=== PATIENT | female | born 1955 | race Caucasian/White ===

== ENCOUNTER 2018-05-05 10:10 | Emergency (ER) | payer BC, OTHER ==
--- NOTE | 2018-05-05 11:11 | EDM.PDOC ---
ED HPI GENERAL MEDICAL PROBLEM - General Chief Complaint: General Stated Complaint: POPPED A RIB Time Seen by Provider: 05/05/18 10:50 Source of Information: Reports: Patient History Limitations: Reports: No Limitations - History of Present Illness INITIAL COMMENTS - FREE TEXT/NARRATIVE: 62-year-old female has been struggling with recurring rib fractures over the past 4 months, was healed and was doing well but was very active over the past 3 days repeatingly lifting 16 pounds and then yesterday coughed and felt a pop in the left posterior rib cage. Today she is very uncomfortable, having pleuritic pain, and has been told by her primary provider if this happens she needs to repeat a CT scan to see if she has additional fractures. She has no shortness of breath but she does have pain with breathing, no fevers or chills, denies nausea or vomiting. Onset: Sudden Duration: Day(s): (Yesterday) Location: Reports: Chest (Posterior left chest) Left Chest Pain Score (Numeric/FACES): 3 - Related Data Allergies Allergy/AdvReac Type Severity Reaction Status Date / Time No Known Allergies Allergy Verified 05/05/18 10:46 Home Meds: Home Meds Alendronate Sodium [Fosamax] 70 mg PO ASDIRECTED 05/05/18 [History] Aspirin [Adult Aspirin] 81 mg PO DAILY 05/05/18 [History] DULoxetine [Cymbalta] 30 mg PO DAILY 05/05/18 [History] Hydrochlorothiazide 25 mg PO DAILY 05/05/18 [History] Latanoprost [Xalatan] 2.5 ml TOP DAILY 05/05/18 [History] Metoprolol Tartrate 25 mg PO DAILY 05/05/18 [History] Naproxen 500 mg PO BID 05/05/18 [History] Simvastatin [Zocor] 40 mg PO BEDTIME 05/05/18 [History] Past Medical History HEENT History: Reports: Glaucoma Cardiovascular History: Reports: High Cholesterol, Hypertension Musculoskeletal History: Reports: Arthritis, Fracture, Osteoporosis - Past Surgical History HEENT Surgical History: Reports: Other (See Below) Other HEENT Surgeries/Procedures: nose polyp removed. vocal cord surgery Social & Family History - Tobacco Use Smoking Status *Q: Current Every Day Smoker Years of Tobacco use: 1 Packs/Tins Daily: 40 - Caffeine Use Caffeine Use: Reports: Coffee - Recreational Drug Use Recreational Drug Use: No ED ROS GENERAL - Review of Systems Review Of Systems: See Below Constitutional: Denies: Fever, Chills HEENT: Reports: No Symptoms Respiratory: Reports: Pleuritic Chest Pain. Denies: Shortness of Breath Cardiovascular: Denies: Palpitations GI/Abdominal: Denies: Abdominal Pain, Nausea, Vomiting Skin: Denies: Bruising ED EXAM, GENERAL - Physical Exam Exam: See Below Exam Limited By: No Limitations General Appearance: Alert, No Apparent Distress (Patient looks uncomfortable but is not distressed) Respiratory/Chest: No Respiratory Distress, Lungs Clear, Other (Exquisitely tender to palpation across the lateral and posterior left chest, no crepitus or bruising or asymmetry) Cardiovascular: Regular Rate, Rhythm Neurological: Alert, Oriented Psychiatric: Anxious Skin Exam: Warm, Dry Course - Vital Signs Last Recorded V/S: Last Vital Signs Temp 97.0 F 05/05/18 10:40 Pulse 80 05/05/18 10:40 Resp 18 05/05/18 10:40 BP 163/80 H 05/05/18 10:40 Pulse Ox 94 L 05/05/18 10:40 - Orders/Labs/Meds Orders: Active Orders 24 hr Category Date Time Status EKG Documentation Completion [RC] ASDIRECTED Care 05/05/18 12:38 Inactive Chest wo Cont [CT] Stat Exams 05/05/18 11:06 Taken EKG 12 Lead [EK] Stat Ther 05/05/18 12:36 Stop Req Meds: Medications Discontinued Medications Generic Name Dose Route Start Last Admin Trade Name Marcia PRN Reason Stop Dose Admin Ketorolac Tromethamine 60 mg 05/05/18 11:36 05/05/18 12:06 Toradol IM 05/05/18 11:37 60 mg ONETIME ONE Administration - Re-Assessments/Exams Free Text/Narrative Re-Assessment/Exam: 05/05/18 11:[address] of the chest without contrast was obtained to assess the ribs. 05/05/18 12:48 CT the chest did confirm old rib fractures 7-9, however there is a new subtle acute rib fracture in the 10th rib. This does correlate with her new pain. A copy of the CT scan was made to give the patient for follow-up to compared to her previous CTs at [facility]. She was given Robitussin-AC for cough suppression along with 10 Vicodin to use as needed along with anti- inflammatories. She is going to recheck with her primary provider on Monday or Monday. Departure - Departure Time of Disposition: 12:54 Disposition: Home, Self-Care 01 Condition: Good Clinical Impression: Closed rib fracture Qualifiers: Encounter type: initial encounter Rib fracture type: single rib Laterality: left Qualified Code(s): S22.32XA - Fracture of one rib, left side, initial encounter for closed fracture - Discharge Information Instructions: Rib Fracture, [id number] Referrals: Daniela Torres [employer]ACILITY EXAMINER [Primary Care Provider] - Forms: ED Department Discharge Care Plan Goals: Increase activity as tolerated, take pain medication as discussed. Recheck next week with your primary provider to discuss further evaluation and treatment. - My Orders Last 24 Hours: My Active Orders 05/05/18 11:06 Chest wo Cont [CT] Stat 05/05/18 12:36 EKG 12 Lead [EK] Stat 05/05/18 12:38 EKG Documentation Completion [RC] ASDIRECTED - Assessment/Plan Last 24 Hours: My Active Orders 05/05/18 11:06 Chest wo Cont [CT] Stat 05/05/18 12:36 EKG 12 Lead [EK] Stat 05/05/18 12:38 EKG Documentation Completion [RC] ASDIRECTED
[2018-05-05] MEDS ORDERED: Ketorolac 60 MG/2 ML SDV IM ONE (11:36)
== END 2018-05-05 12:59 | disposition home or self-care (01) ==
LOC: JP.ED 10:10
DX: S22.32XA Fracture of one rib, left side, initial encounter for closed fracture (principal); E78.00 Pure hypercholesterolemia, unspecified; I10 Essential (primary) hypertension; F17.210 Nicotine dependence, cigarettes, uncomplicated; Z79.82 Long term (current) use of aspirin; Z79.899 Other long term (current) drug therapy; X50.0XXA Overexertion from strenuous movement or load, initial encounter
CPT/HCPCS: 71250; 96372; 99284; J1885

== ENCOUNTER 2021-04-12 18:22 | Emergency (ER) | payer MEDICAID, OTHER ==
[2021-04-12] MEDS ORDERED: Nitroglycerin 0.4 MG Tab.SL SL PRN (18:58)
[2021-04-12] MEDS ORDERED: Aspirin 81 MG Tab.Chew PO ONE (18:58)
[2021-04-12] MEDS ORDERED: Morphine 4 MG/ML Syringe IVPUSH PRN (18:58)
--- NOTE | 2021-04-12 19:01 | EDM.PDOC ---
ED HPI GENERAL MEDICAL PROBLEM - General Chief Complaint: Chest Pain Stated Complaint: CHEST DULL ACHE,SHORTNESS OF BREATH Time Seen by Provider: 04/12/21 18:47 Source of Information: Reports: Patient, RN Notes Reviewed History Limitations: Reports: No Limitations - History of Present Illness INITIAL COMMENTS - FREE TEXT/NARRATIVE: 65-year-old female presents emergency department with a complaint of chest pressure, she states has been there most of the day no change with exertion she does have a known history of coronary disease but never had any stenting. She states she does feel more short of breath than usual no nausea vomiting or diaphoresis. Is set up for stress test Left Chest Pain Score (Numeric/FACES): 1 - Related Data Allergies Allergy/AdvReac Type Severity Reaction Status Date / Time No Known Allergies Allergy Verified 04/12/21 18:40 Home Meds: Home Meds Aspirin [Adult Aspirin] 81 mg PO DAILY 05/05/18 [History] DULoxetine [Cymbalta] 30 mg PO DAILY 05/05/18 [History] Latanoprost [Xalatan] 2.5 ml TOP DAILY 05/05/18 [History] Metoprolol Tartrate 25 mg PO DAILY 05/05/18 [History] Naproxen 500 mg PO BEDTIME 05/05/18 [History] hydroCHLOROthiazide [Hydrochlorothiazide] 25 mg PO DAILY 05/05/18 [History] atorvaSTATin [Lipitor] 40 mg PO BEDTIME 04/12/21 [History] Past Medical History HEENT History: Reports: Glaucoma Cardiovascular History: Reports: High Cholesterol, Hypertension 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 vocal cord surgery Social & Family History - Tobacco Use Tobacco Use Status *Q: Former Tobacco User Years of Tobacco use: 24 Packs/Tins Daily: 2 Used Tobacco, but Quit: No Second Hand Smoke Exposure: No - Caffeine Use Caffeine Use: Reports: Coffee - Alcohol Use Days Per Week of Alcohol Use: 7 Number of Drinks Per Day: 3 Total Drinks Per Week: 21 - Recreational Drug Use Recreational Drug Use: No ED ROS GENERAL - Review of Systems Review Of Systems: See Below Constitutional: Reports: No Symptoms HEENT: Reports: No Symptoms Respiratory: Reports: Shortness of Breath Cardiovascular: Reports: Chest Pain GI/Abdominal: Reports: No Symptoms ED EXAM, GENERAL - Physical Exam Exam: See Below Exam Limited By: No Limitations General Appearance: Alert, WD/WN, No Apparent Distress Respiratory/Chest: No Respiratory Distress, Lungs Clear, Normal Breath Sounds, No Accessory Muscle Use, Chest Non-Tender Cardiovascular: Regular Rate, Rhythm, No Murmur GI/Abdominal: Soft, Non-Tender #1 Interpretation EKG Date: 04/12/21 Time: 19:10 Rhythm: NSR [place]: Normal P-Wave: Present QRS: Normal ST-T: Normal QT: Normal Comparison: NA - No Prior EKG Course - Vital Signs Last Recorded V/S: Last Vital Signs Temp 98.3 F 04/12/21 18:53 Pulse 82 04/12/21 19:35 Resp 22 H 04/12/21 19:35 BP 136/72 04/12/21 19:35 Pulse Ox 91 L 04/12/21 19:35 - Orders/Labs/Meds Orders: Active Orders 24 hr Category Date Time Status Cardiac Monitoring [RC] .As Directed Care 04/12/21 18:58 Active EKG Documentation Completion [RC] ASDIRECTED Care 04/12/21 18:59 Active Chest 1V Frontal [CR] Stat Exams 04/12/21 18:59 Taken Morphine Med 04/12/21 18:58 Active 4 mg IVPUSH Q10M PRN Nitroglycerin [Nitrostat] Med 04/12/21 18:58 Active 0.4 mg SL Q5M PRN EKG 12 Lead [EK] Stat Ther 04/12/21 18:59 Ordered Medication Orders Morphine Sulfate (Morphine 4 Mg/Ml Syringe) 4 mg IVPUSH Q10M PRN PRN Reason: Chest Pain Stop: 04/13/21 18:58 Nitroglycerin (Nitroglycerin 0.4 Mg Tab.Sl) 0.4 mg SL Q5M PRN PRN Reason: Chest Pain Stop: 04/13/21 18:58 Labs: Laboratory Tests 04/12/21 04/12/21 04/12/21 Range/Units 19:17 19:17 19:17 WBC 8.5 (4.5-11.0) K/uL RBC 4.55 (3.30-5.50) M/uL Hgb 14.8 (12.0-15.0) g/dL Hct 44.9 (36.0-48.0) % MCV 99 H (80-98) fL MCH 33 H (27-31) pg MCHC 33 (32-36) % Plt Count 149 L (150-400) K/uL Neut % (Auto) 57.8 (36-66) % Lymph % (Auto) 28.5 (24-44) % [place] % (Auto) 8.7 H (2-6) % Eos % (Auto) 4.2 H (2-4) % Baso % (Auto) 0.8 (0-1) % D-Dimer, Quantitative 259.16 (0.0-500.0) ng/mL Sodium 142 (140-148) mmol/L Potassium 3.7 (3.6-5.2) mmol/L Chloride 102 (100-108) mmol/L Carbon Dioxide 30 (21-32) mmol/L Anion Gap 10.2 (5.0-14.0) mmol/L BUN 14 (7-18) mg/dL Creatinine 0.7 (0.6-1.0) mg/dL Est Cr Clr Drug Dosing 73.06 mL/min Estimated GFR (MDRD) > 60 (>60) Glucose 92 (74-106) mg/dL Calcium 8.9 (8.5-10.1) mg/dL Total Bilirubin 0.5 (0.2-1.0) mg/dL AST 25 (15-37) U/L ALT 40 (12-78) U/L Alkaline Phosphatase 86 (46-116) U/L Troponin I < 0.017 (0.000-0.056) ng/mL Total Protein 7.1 (6.4-8.2) g/dL Albumin 3.8 (3.4-5.0) g/dL Globulin 3.3 (2.3-3.5) g/dL Albumin/Globulin Ratio 1.2 (1.2-2.2) Meds: Medications Generic Name Dose Route Start Last Admin Trade Name Freq PRN Reason Stop Dose Admin Morphine Sulfate 4 mg 04/12/21 18:58 Morphine 4 Mg/Ml Syringe IVPUSH 04/13/21 18:58 Q10M PRN Chest Pain Nitroglycerin 0.4 mg 04/12/21 18:58 Nitroglycerin 0.4 Mg Tab.Sl SL 04/13/21 18:58 Q5M PRN Chest Pain Discontinued Medications Generic Name Dose Route Start Last Admin Trade Name Macria PRN Reason Stop Dose Admin Aspirin 324 mg 04/12/21 18:58 04/12/21 19:33 Aspirin 81 Mg Tab.Chew PO 04/12/21 18:59 324 mg ONETIME ONE Administration Departure - Departure Time of Disposition: 19:57 Disposition: Home, Self-Care 01 Condition: Fair Clinical Impression: Atypical chest pain Instructions: Nonspecific Chest Pain, Adult Referrals: Daniela Torres NP [Primary Care Provider] - Forms: ED Department Discharge Additional Instructions: Please keep your follow-up appointment for stress test, follow-up with your primary care next 3 to 5 days for further evaluation call return to the emergency department worsening of symptoms Sepsis Event Note (ED) - Evaluation Sepsis Screening Result: No Definite Risk - Focused Exam Vital Signs: Vital Signs Temp Pulse Resp BP Pulse Ox 04/12/21 19:35 82 22 H 136/72 91 L 04/12/21 18:53 98.3 F 74 14 155/84 H 96 04/12/21 18:41 98.3 F 74 14 155/84 H 96 - My Orders Last 24 Hours: My Active Orders 04/12/21 18:58 Cardiac Monitoring [RC] .As Directed Morphine 4 mg IVPUSH Q10M PRN Nitroglycerin [Nitrostat] 0.4 mg SL Q5M PRN 04/12/21 18:59 EKG Documentation Completion [RC] ASDIRECTED Chest 1V Frontal [CR] Stat EKG 12 Lead [EK] Stat - Assessment/Plan Last 24 Hours: My Active Orders 04/12/21 18:58 Cardiac Monitoring [RC] .As Directed Morphine 4 mg IVPUSH Q10M PRN Nitroglycerin [Nitrostat] 0.4 mg SL Q5M PRN 04/12/21 18:59 EKG Documentation Completion [RC] ASDIRECTED Chest 1V Frontal [CR] Stat EKG 12 Lead [EK] Stat Plan: Assessment Acuity = acute Site and laterality = atypical chest pain Etiology = unknown Manifestations = none Location of injury = Home Lab values = CBC CMP unremarkable troponin is negative D-dimer is negative EKG demonstrates sinus rhythm no ST elevations or depressions, chest x-ray I did review films myself I cannot appreciate any acute process, the official read from radiology is pending Plan She is scheduled for a stress test we will have her continue with that follow-up primary care 3 to 5 days if no improvement This note was dictated using [employer] voice recognition software please call with any questions on syntax or grammar.
--- NOTE | 2021-04-13 13:00 | CR ---
CHEST: Portable 04/12/2021 at 7:34 PM CLINICAL HISTORY:Chest pain COMPARISON:CT 2018 FINDINGS: The heart size, pulmonary vascularity and hilar structures are normal. No infiltrate effusion or pneumothorax is seen. There is a fracture of the right seventh rib which appears old IMPRESSION: No acute cardiopulmonary process.
== END 2021-04-12 20:32 | disposition home or self-care (01) ==
LOC: JP.ED 18:22
DX: R07.89 Other chest pain (principal); E78.00 Pure hypercholesterolemia, unspecified; I10 Essential (primary) hypertension; E66.9 Obesity, unspecified; Z68.30 Body mass index [BMI] 30.0-30.9, adult; Z79.82 Long term (current) use of aspirin; Z79.899 Other long term (current) drug therapy; Z87.891 Personal history of nicotine dependence
CPT/HCPCS: 36415; 71045; 80053; 84484; 85025; 85379; 93005; 99285; A9270

== ENCOUNTER 2022-03-17 21:35 | Emergency (ER) | payer MEDICARE, MEDICAID | END 2022-03-17 22:35 | disposition home or self-care (01) | LOC: JP.ED 21:35 | DX: K94.23 Gastrostomy malfunction (principal); E78.00 Pure hypercholesterolemia, unspecified; I10 Essential (primary) hypertension; E66.9 Obesity, unspecified; Z68.34 Body mass index [BMI] 34.0-34.9, adult; Z79.82 Long term (current) use of aspirin; Z79.899 Other long term (current) drug therapy | CPT/HCPCS: 99282; 99283 ==

== ENCOUNTER 2023-07-15 02:06 | Emergency (ER) | payer MEDICARE, MEDICAID ==
[2023-07-15] MEDS ORDERED: Ketorolac 30 MG/ML SDV IM ONE (02:37)
[2023-07-15] MEDS ORDERED: Acetaminophen/HYDROcodone 325-5 MG Tab PO ONE (03:00)
== END 2023-07-15 03:32 | disposition home or self-care (01) ==
LOC: JP.ED 02:06
DX: J20.9 Acute bronchitis, unspecified (principal); E78.00 Pure hypercholesterolemia, unspecified; I10 Essential (primary) hypertension; E66.9 Obesity, unspecified; F17.210 Nicotine dependence, cigarettes, uncomplicated; Z68.30 Body mass index [BMI] 30.0-30.9, adult; Z79.82 Long term (current) use of aspirin; Z79.899 Other long term (current) drug therapy
CPT/HCPCS: 71045; 96372; 99283; J1885

== ENCOUNTER 2023-08-18 11:18 | Emergency (ER) | payer MEDICARE, MEDICAID | END 2023-08-18 13:07 | disposition home or self-care (01) | LOC: JP.ED 11:18 | DX: S82.831A Other fracture of upper and lower end of right fibula, initial encounter for closed fracture (principal); F17.210 Nicotine dependence, cigarettes, uncomplicated; E78.00 Pure hypercholesterolemia, unspecified; I10 Essential (primary) hypertension; M19.90 Unspecified osteoarthritis, unspecified site; E66.9 Obesity, unspecified; Z79.82 Long term (current) use of aspirin; Z79.899 Other long term (current) drug therapy; W19.XXXA Unspecified fall, initial encounter | CPT/HCPCS: 72220; 72220-26; 73610-26-RT; 73610-RT; 99283 ==

== ENCOUNTER 2023-09-11 08:53 | Day surgery (SDC) | payer MEDICARE, MEDICAID ==
[~2023-09-11 08:53] MED LIST: Bupivacaine 0.5% 50 ML MDV ONE; Nozin Nasal Sanitizer NASBOTH ONE; Sodium Chloride 0.9% 1,000 ML IV SCH; ceFAZolin 2 GM in Premix Bag 1 BAG IV ONE
[2023-09-11 09:31] LABS: HEMOGLOBIN 14.3 g/dL (11.2-15.5); MEAN CORPUSCULAR HEMOGLOBIN 32.3 pg (31.6-35.5); MEAN CORPUSCULAR VOLUME 94.8 fL (81.4-99.0); RED BLOOD CELL COUNT 4.43 M/uL (3.77-5.24); WHITE BLOOD CELL COUNT,WBC 7.9 K/uL (3.2-11.0)
[2023-09-11] MEDS ORDERED: Lactated Ringers 1,000 ML IV SCH (09:45)
[2023-09-11 09:52] LABS: A/G RATIO 1.2 (1.2-2.2); ALANINE AMINOTRANSFERASE,ALT 29 U/L (12-78); ALBUMIN 3.8 g/dL (3.4-5.0); ALKALINE PHOSPHATASE 102 U/L (46-116); ANION GAP 9.6 mmol/L (5.0-14.0); ASPARTATE AMNIOTRANSFERASE,AST 24 U/L (15-37); BILIRUBIN TOTAL 0.7 mg/dL (0.2-1.0); BLOOD UREA NITROGEN,BUN 21 mg/dL (7-18); CALCIUM 9.1 mg/dL (8.5-10.1); CARBON DIOXIDE,CO2 29 mmol/L (21-32); CHLORIDE,CL 104 mmol/L (100-108); CREATININE 0.8 mg/dL (0.6-1.0); EST CRCL DRUG DOSING (CG) 62.24 mL/min; ESTIMATED GFR 81 mL/min (>60); GLUCOSE RANDOM 100 mg/dL (74-106); POTASSIUM,K 4.2 mmol/L (3.6-5.2); PROTEIN TOTAL,TP 7.1 g/dL (6.4-8.2); SODIUM,NA 143 mmol/L (140-148)
[2023-09-11] MEDS ORDERED: Succinylcholine 200 MG/10 ML MDV ONE (10:48)
[2023-09-11] MEDS ORDERED: Glycopyrrolate 0.2 MG/ML 5 ML MDV ONE (10:48)
[2023-09-11] MEDS ORDERED: Neostigmine Methylsulfate 1 MG/ML 5 ML Syringe ONE (10:48)
[2023-09-11] MEDS ORDERED: Ondansetron 4 MG/2 ML SDV ONE (10:48)
[2023-09-11] MEDS ORDERED: fentaNYL 250 MCG/5 ML SDV ONE ×2 (10:48→11:59)
[2023-09-11] MEDS ORDERED: Rocuronium 50 MG/5 ML Vial ONE (10:48)
[2023-09-11] MEDS ORDERED: Dexamethasone 4 MG/ML SDV ONE (10:48)
[2023-09-11] MEDS ORDERED: Propofol 200 MG/20 ML SDV ONE (10:48)
[2023-09-11] MEDS ORDERED: Acetaminophen/HYDROcodone 325-5 MG Tab PO ONE (13:45)
[2023-09-11] MEDS ORDERED: Ondansetron 4 MG Tab.DIS PO ONE (15:15)
== END 2023-09-11 15:00 | disposition home or self-care (01) ==
LOC: JP.SDS 08:53
PROVIDERS: ATTEND Specialist
DX: S82.61XA Displaced fracture of lateral malleolus of right fibula, initial encounter for closed fracture (principal); S93.431A Sprain of tibiofibular ligament of right ankle, initial encounter; I10 Essential (primary) hypertension; C15.9 Malignant neoplasm of esophagus, unspecified; G47.33 Obstructive sleep apnea (adult) (pediatric); J44.9 Chronic obstructive pulmonary disease, unspecified; F17.210 Nicotine dependence, cigarettes, uncomplicated; Z98.890 Other specified postprocedural states; Z20.822 Contact with and (suspected) exposure to COVID-19; Z79.899 Other long term (current) drug therapy
CPT/HCPCS: 27792; 27829; 36415; 76000; 80053; 85027; 93005; A9270; C1713; C1776; J0330; J0690; J1100; J2405; J2704; J2710; J3010; J3490; J7120; Q0162; 93010